=== PATIENT | male | born 1975 | race Two or more races ===

== ENCOUNTER 2019-10-21 03:52 | Emergency (ER) | payer OTHER, MEDICAID ==
[~2019-10-21] VITALS: Ht 180.3 cm; Wt 98.0 kg
[2019-10-21 04:51] VITALS: BP 138/88
== END 2019-10-21 04:52 | disposition home or self-care (01) ==
LOC: ER 03:52
DX: F15.10 Other stimulant abuse, uncomplicated (principal); F16.10 Hallucinogen abuse, uncomplicated; F12.90 Cannabis use, unspecified, uncomplicated; F91.8 Other conduct disorders; R03.0 Elevated blood-pressure reading, without diagnosis of hypertension
CPT/HCPCS: 93005; 99283

== ENCOUNTER 2019-10-21 05:22 | Emergency (ER) | payer MEDICAID ==
[~2019-10-21] VITALS: Ht 180.3 cm; Wt 80.0 kg
[2019-10-21] MEDS ORDERED: ACETAMINOPHEN 325MG TABLET PO ONE (06:30)
[2019-10-21] MEDS ORDERED: BACITRACIN ZINC OINT UDPKT TOP ONE (06:30)
[2019-10-21 09:26] VITALS: BP 121/87
== END 2019-10-21 09:29 | disposition home or self-care (01) ==
LOC: ER 05:22
DX: S40.811A Abrasion of right upper arm, initial encounter (principal); S60.512A Abrasion of left hand, initial encounter; S80.212A Abrasion, left knee, initial encounter; M25.522 Pain in left elbow; M25.521 Pain in right elbow; M79.601 Pain in right arm; Y04.2XXA Assault by strike against or bumped into by another person, initial encounter; Y93.01 Activity, walking, marching and hiking; Y92.480 Sidewalk as the place of occurrence of the external cause; F17.210 Nicotine dependence, cigarettes, uncomplicated; Z71.6 Tobacco abuse counseling
CPT/HCPCS: 99284; 99406